=== PATIENT | male | born 1980 | race Caucasian/White ===

== ENCOUNTER 2017-03-18 15:52 | Emergency (ER) | payer BC ==
[2017-03-18 16:01] VITALS: RESP 16
[2017-03-18] MEDS ORDERED: KETOROLAC 30 MG/1 ML SDV IVP ONE (16:33)
[2017-03-18 16:44] LABS: % IMMATURE GRANULYOCYTES 0.4 % (0.0-1.1); ABSOLUTE IMMATURE GRANULOCYTES 0.03 10^3/uL (0.00-0.10); ADD DIFF? NO; ADD MORPH? NO; ADD SCAN? NO; ATYPICAL LYMPHOCYTE FLAG 10 (0-99); FRAGMENT RBC FLAG 0 (0-99); HEMATOCRIT 45.9 % (40.0-51.0); HEMOGLOBIN 16.1 g/dL (13.7-17.5); LEFT SHIFT FLG 0 (0-99); LIPEMIA HEMOLYSIS FLAG 90 (0-99); MEAN CELL HEMOGLOBIN 31.1 pg (27.9-34.1); MEAN CELL HEMOGLOBIN CONCENTR. 35.1 g/dL (32.4-36.7); MEAN CELL VOLUME 88.8 fL (81.5-99.8); MEAN PLATELET VOLUME 9.2 fL (8.7-11.7); PLATELET CLUMPS FLAG 0 (0-99); PLATELET COUNT 317 10^3/uL (150-400); RED BLOOD CELL COUNT 5.17 10^6/uL (4.40-6.38); RED CELL DISTRIBUTION WIDTH 11.8 % (11.5-15.2)
[2017-03-18 17:03] LABS: ANION GAP 16 mEq/L (8-16); CALCIUM 9.1 mg/dL (8.5-10.4); CARBON DIOXIDE 26 mEq/l (22-31); CHLORIDE 99 mEq/L (97-110); CREATININE 0.7 mg/dL (0.7-1.3); GLOMERULAR FILTRATION RATE > 60; GLUCOSE 81 mg/dL (70-100); POTASSIUM 4.3 mEq/L (3.5-5.2); SODIUM 141 mEq/L (134-144)
--- NOTE | 2017-03-18 17:04 | EDPHY ---
H & P Stated Complaint: tooth cracked for awhile and now 1 week of pain.Chronic on/ off bloody stool Time Seen by Provider: 03/18/17 15:59 HPI/ROS: This patient complains of bloody stools, toothache and chronic dry skin on his penis. He came in by private vehicle primarily concerned about his bloody stools. He explains that for years he has had occasional bloody stools the usually mild and resolved within half a day or less. However starting yesterday evening he developed bloody stool that he describes feeling the toilet bowl somewhere between the color of wine and brighter red color. He it appears it the stool itself is bloody and he reports associated diarrhea with fiber 6 episodes yesterday and and 1 today. Due to the ongoing symptoms he came in for further evaluation. He denies any other associated GI symptoms. He reports that he thinks he is likely lactose intolerance of generally avoids lactose and did eat pizza at a green party prior to the onset of his bloody stools. He also complains of left lower tooth pain 8/10 intensity with associated sensitivity to hot and cold a tooth that had a cap in the past. He tried Tylenol at 10:00 a.m. without much improvement has not had any medications since that time. He did try Orajel [id number] benzocaine as well without much improvement. Finally, he reports that for years he has intermittently had dry skin to the glans of his penis. He gets occasional psoriasis and he has assumed that the dry skin in the penis was from psoriasis but at times it is only the penis that has the dry skin. He is applied some kind of lotion that he got from as the tissue in for his mild psoriasis to the penis but reports that does not seem to help. ROS: No fevers or chills. No fatigue. HEENT: No URI symptoms Pulmonary: He reports occasional cough but no shortness of breath or wheeze. Cardiovascular: No chest pain heart palpitations or lightheadedness. GI: He denies any abdominal pain. No bloating. No nausea or vomiting. : As per HPI. He has no urethral discharge. No testicle pain or swelling. No dysuria. Integumentary: Currently no skin complaints other than the penis. Endocrine: No complaints 10 point ROS is otherwise negative. Source: Patient Exam Limitations: No limitations - Personal History Current Tetanus/Diphtheria Vaccine: Unsure Current Tetanus Diphtheria and Acellular Pertussis (TDAP): Unsure - Medical/Surgical History Hx Asthma: No Hx Chronic Respiratory Disease: No Hx Diabetes: No Hx Cardiac Disease: No Hx Renal Disease: No Hx Cirrhosis: No Hx Alcoholism: No Hx HIV/AIDS: No Hx Splenectomy or Spleen Trauma: No Other PMH: shoulder left surgery. carpal tunnel on left hand - Family History Significant Family History: No pertinent family hx, Other (No known family history of Crohn's disease or other inflammatory bowel disease) - Social History Smoking Status: Current every day smoker Alcohol Use: Occasionally Drug Use: Marijuana - Physical Exam Exam: General Appearance: Alert, no distress. Eyes: Pupils equal and round no pallor or injection. ENT, Mouth: Mucous membranes moist. Left lower canine tooth as a cap that is tender to percussion. No associated gingival swelling. Dentition is otherwise intact no pharyngeal erythema. Respiratory: There are no retractions, lungs are clear to auscultation. Cardiovascular: Regular rate and rhythm. Gastrointestinal: Abdomen is soft and nontender, no masses, bowel sounds normal. Rectal exam: No external hemorrhoids. Stool is light red wine color and Hemoccult positive on testing prostate is nontender normal in size. : Circumcised penis with some dry flaking skin to the glans. No ulcerative lesions. No urethral discharge. No testicular swelling. Neurological: GCS 15 Skin: Warm and dry, no rashes. Psychiatric: Mood and affect are normal DIFFERENTIAL DIAGNOSIS: After history and physical exam differential diagnosis was considered for infectious diarrhea, colitis, autoimmune colitis, polyp, colon cancer, dental caries or periapical abscess, psoriasis, syphilis, herpes Constitutional: Initial Vital Signs Temperature (C) 36.7 C 03/18/17 15:55 Heart Rate 80 03/18/17 15:55 Respiratory Rate 16 03/18/17 15:55 Blood Pressure 116/79 03/18/17 15:55 O2 Sat (%) 94 03/18/17 15:55 O2 Delivery Mode Room Air Allergies/Adverse Reactions: No Known Allergies Allergy (Unverified 03/18/17 16:01) Home Medications: Medication Instructions Recorded Penicillin V Potassium [Pen Vk 500 mg PO BID #20 tab 03/18/17 500mg (*)] oxyCODONE/APAP 5/325 [Percocet 1 - 2 tab PO Q4-6PRN PRN #18 tab 03/18/17 5/325 (*)] Medical Decision Making ED Course/Re-evaluation: IV is established. Patient is treated with Toradol, blood sent for labs. Patient partial improvement tooth pain down to 5 or 6/10 after Toradol. He is unable to provide a stool sample for PCR testing. I consulted and spoke with Dr. Hi Mendoza-Gastroenterology of the [facility] regarding this patient Discussion: Patient with dental pain is likely caries or periapical abscess on the calf tooth. Penile lesion appears to be chronic in is likely dermatologic rather than STD but did send RPR and HSV which is pending. 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 Regarding the bloody stools-possibilities include infectious diarrhea but I think this is unlikely given lack of fever or elevated white count other risk factors for dysentery. Polyp, colitis or other is more likely. Patient has no hemodynamic instability or anemia I think is safe for discharge home with plan to send stool to the [facility] lab for PCR testing and follow up with GI of the [facility] this week for further evaluation. I also recommended that he establish primary care physician, and follow up with a dentist. - Data Points Laboratory Results: Laboratory Results 03/18/17 16:30 03/18/17 16:30 03/18/17 03/18/17 03/18/17 16:30 16:30 16:30 WBC RBC Hgb Hct MCV MCH MCHC RDW Plt Count MPV Neut % (Auto) Lymph % (Auto) [place] % (Auto) Eos % (Auto) Baso % (Auto) Nucleat RBC Rel Count Absolute Neuts (auto) Absolute Lymphs (auto) Absolute Monos (auto) Absolute Eos (auto) Absolute Basos (auto) Absolute Nucleated RBC Immature Gran % Immature Gran # Sodium Potassium Chloride Carbon Dioxide Anion Gap BUN Creatinine Estimated GFR Glucose Calcium Stool Occult Bld Scrn POSITIVE H (NEGATIVE) RPR Pending Herpes Simplex DNA PCR Pending 03/18/17 03/18/17 16:30 16:30 WBC 8.52 10^3/uL 10^3/uL (3.80-9.50) RBC 5.17 10^6/uL 10^6/uL (4.40-6.38) Hgb 16.1 g/dL g/dL (13.7-17.5) Hct 45.9 % % (40.0-51.0) MCV 88.8 fL fL (81.5-99.8) MCH 31.1 pg pg (27.9-34.1) MCHC 35.1 g/dL g/dL (32.4-36.7) RDW 11.8 % % (11.5-15.2) Plt Count 317 10^3/uL 10^3/uL (150-400) MPV 9.2 fL fL (8.7-11.7) Neut % (Auto) 53.5 % % (39.3-74.2) Lymph % (Auto) 33.0 % % (15.0-45.0) [place] % (Auto) 11.2 % % (4.5-13.0) Eos % (Auto) 1.3 % % (0.6-7.6) Baso % (Auto) 0.6 % % (0.3-1.7) Nucleat RBC Rel Count 0.0 % % (0.0-0.2) Absolute Neuts (auto) 4.57 10^3/uL 10^3/uL (1.70-6.50) Absolute Lymphs (auto) 2.81 10^3/uL 10^3/uL (1.00-3.00) Absolute Monos (auto) 0.95 10^3/uL H 10^3/uL (0.30-0.80) Absolute Eos (auto) 0.11 10^3/uL 10^3/uL (0.03-0.40) Absolute Basos (auto) 0.05 10^3/uL 10^3/uL (0.02-0.10) Absolute Nucleated RBC 0.00 10^3/uL 10^3/uL (0-0.01) Immature Gran % 0.4 % % (0.0-1.1) Immature Gran # 0.03 10^3/uL 10^3/uL (0.00-0.10) Sodium 141 mEq/L mEq/L (134-144) Potassium 4.3 mEq/L mEq/L (3.5-5.2) Chloride 99 mEq/L mEq/L (97-110) Carbon Dioxide 26 mEq/l mEq/l (22-31) Anion Gap 16 mEq/L mEq/L (8-16) BUN 9 mg/dL mg/dL (7-23) Creatinine 0.7 mg/dL mg/dL (0.7-1.3) Estimated GFR > 60 Glucose 81 mg/dL mg/dL (70-100) Calcium 9.1 mg/dL mg/dL (8.5-10.4) Stool Occult Bld Scrn RPR Herpes Simplex DNA PCR Medications Given: Discontinued Medications Ketorolac Tromethamine (Toradol) 30 mg IVP EDNOW ONE Stop: 03/18/17 16:34 Last Admin: 03/18/17 16:40 Dose: 30 mg Departure - Departure Disposition: Home, Routine, Self-Care Clinical Impression: Bloody stools, Lesion of penis, Pain, dental Condition: Good Instructions: Rectal Bleeding (ED), Toothache (ED) Additional Instructions: Diagnosis: 1. Bloody stool 2. Dental pain 3. Penile lesion Plan: Bring a stool sample via the stool collection kit to [facility]. Go to the emergency department triage just present this and will take it to the lab. Call Dr. Mendoza -gastroenterology specialist arrange follow-up appointment for this week for further evaluation of her symptoms For dental pain take penicillin antibiotic, ibuprofen, and Tylenol or Percocet. No driving, alcohol or come Percocet. Coli dentist for further evaluation of your dental pain. Try a be seen within the next 5-[address] Maria to establish primary care physician Return for any significant worsening despite the treatment plan. Referrals: NONE *PRIMARY CARE P,. [Primary Care Provider] - As per Instructions Tony Mendoza MD [Medical Doctor] - As per Instructions Mil Maria MD [Medical Doctor] - As per Instructions Prescriptions: oxyCODONE/APAP 5/325 [Percocet 5/325 (*)] 1 - 2 tab PO Q4-6PRN PRN #18 tab PRN Reason: Pain Penicillin V Potassium [Pen Vk 500mg (*)] 500 mg PO BID #20 tab
[2017-03-18 17:52] VITALS: BP 128/93; PULSE 57; TEMP 97.5; O2SAT 95
== END 2017-03-18 18:01 | disposition home or self-care (01) ==
LOC: CED 15:52
DX: K08.89 Other specified disorders of teeth and supporting structures (principal); K92.1 Melena; F17.200 Nicotine dependence, unspecified, uncomplicated; N48.9 Disorder of penis, unspecified
CPT/HCPCS: 80048-PO; 82270-PO; 85025-PO; 87798-90; 96374; J1885

== ENCOUNTER 2017-12-21 15:05 | Emergency (ER) | payer MEDICAID ==
--- NOTE | 2017-12-21 15:47 | EDPHY ---
H & P Stated Complaint: blood in stool, chronic, worse recently Time Seen by Provider: 12/21/17 15:29 HPI/ROS: Chief Complaint: Rectal bleeding HPI: 37-year-old male with a history of hemorrhoids and diverticulosis but is presenting complaining of increasing episodes of blood per rectum over the last several days. He states that he does have a history of hemorrhoids in knows he has active hemorrhoids at this time. He is passing blood per rectum when he has a bowel movement a couple times a day for the last several days. This is bright red blood with brown stool. He has not had any dark black tarry stools. No lightheadedness or fainting. He is also has a history of chronic back pain and is out of his pain medication is asking for medication refill. He has been taking ibuprofen as well. No nausea or vomiting. He has seen a GI doctor in the past and had an endoscopy be and colonoscopy about a year ago which showed diverticulosis and hemorrhoids. ROS: 10 systems were reviewed and were negative except those elements noted in the HPI. PMH: Hemorrhoids, rectal bleeding, sciatic back pain, diverticulosis Social History: Denies smoking, denies alcohol, denies other drug use Family History: non-contributory Physical Exam: Gen: Awake, Alert, No Distress HEENT: Nose: no rhinorrhea Eyes: PERRLA, EOMI Mouth: Moist mucosa Neck: Supple, no JVD Chest: nontender, lungs clear to auscultation Heart: S1, S2 normal, no murmur Abd: Soft, non-tender, no guarding Back: no CVA tenderness, no midline tenderness Rectal: Patient is lying for external visual exam but is refusing digital rectal exam. There are some non thrombosed mildly inflamed external hemorrhoids and a small fissure in the 12 o'clock position. No blood Ext: no edema, non-tender Skin: no rash Neuro: CN II-XII intact, Sensation grossly intact, Strength 5/5 in bilateral upper and lower extremities - Personal History Current Tetanus Diphtheria and Acellular Pertussis (TDAP): Unsure - Medical/Surgical History Hx Asthma: No Hx Chronic Respiratory Disease: No Hx Diabetes: No Hx Cardiac Disease: No Hx Renal Disease: No Hx Cirrhosis: No Hx Alcoholism: No Hx HIV/AIDS: No Hx Splenectomy or Spleen Trauma: No Other PMH: shoulder left surgery. carpal tunnel on left hand. GERD, diverticulosis, hemorroids, sciatica, - Social History Smoking Status: Current every day smoker Constitutional: Initial Vital Signs Temperature (C) 37.3 C 12/21/17 15:18 Heart Rate 106 H 12/21/17 15:18 Respiratory Rate 16 12/21/17 15:18 Blood Pressure 123/89 H 12/21/17 15:18 O2 Sat (%) 93 12/21/17 15:18 O2 Delivery Mode Room Air Allergies/Adverse Reactions: No Known Allergies Allergy (Unverified 03/18/17 16:01) Home Medications: Medication Instructions Recorded Advil 12/21/17 Omeprazole 12/21/17 Sertraline HCl 12/21/17 Tylenol 12/21/17 Medical Decision Making ED Course/Re-evaluation: 37-year-old male presenting with rectal bleeding with a known history of hemorrhoids and diverticulosis. He is primarily requesting work note and pain medication for chronic back pain today. He is concerned because when he sees the blood he gets lightheaded. Will check a CBC to make sure blood counts are fine. He has not have any melena or any symptoms suggestive of an upper GI source. His abdomen is soft and benign. He is refusing digital rectal exam today and I have not been able to evaluate his stool but there is no active bleeding at this time. I have given him instructions for his treatment of external hemorrhoids, recommended increasing fiber, Sitz baths, he will follow up with his hand buffer as scheduled on the of this month for further evaluation. Departure - Departure Disposition: Home, Routine, Self-Care Clinical Impression: Hemorrhoids, Rectal bleeding Condition: Good Instructions: Hemorrhoids (ED), Rectal Bleeding (ED), High Fiber Diet (ED) Additional Instructions: Increase the fiber in your diet, either 3 dietary changes or by taking Metamucil. Frequent Sitz bath as will be helpful. Follow up with her hand buffer as scheduled on the . Referrals: Crescencio Calderon DO [Primary Care Provider] - As per Instructions
[2017-12-21 17:17] VITALS: BP 120/75
== END 2017-12-21 16:35 | disposition home or self-care (01) ==
LOC: CED 15:05
DX: K64.4 Residual hemorrhoidal skin tags (principal)

== ENCOUNTER → 2018-01-14 | Outpatient (CLI) | payer MEDICAID ==
[~2018-01-14] MED LIST: IOPAMIDOL (ISOVUE-300) 100 ML BTL ONE
== END ==
LOC: FIMAGING 11:43
PROVIDERS: ATTEND Family Medicine
DX: R10.32 Left lower quadrant pain (principal)
CPT/HCPCS: Q9967

== ENCOUNTER → 2018-04-26 | Outpatient (CLI) | payer MEDICAID | LOC: CIMAGING 15:59 | PROVIDERS: ATTEND Family Medicine | DX: M43.16 Spondylolisthesis, lumbar region (principal); M48.061 Spinal stenosis, lumbar region without neurogenic claudication; M43.8X6 Other specified deforming dorsopathies, lumbar region | CPT/HCPCS: 72100-PO ==